=== PATIENT | female | born 1980 | race Caucasian/White ===

== ENCOUNTER 2016-06-04 15:58 | Emergency (ER) | payer OTHER ==
[2016-06-04 16:31] LABS: BASOPHIL 0.2 % (0-2); EOSINOPHIL 2.3 % (0-5); HGB 15.6 g/dl (12.5-16.0); LYMPHOCYTE 13.9 % (15-48); MCH 28.9 pg (25.0-31.0); MCHC 33.9 g/dL (32.0-36.0); MCV 85.2 fL (78.0-100.0); MONOCYTE 6.9 % (0-12); MPV 11.5 fL (6.0-9.5); NEUTROPHIL 76.7 % (41-80); PLT 110 K/uL (150-400); RDW 14.6 % (11.5-14.0); WBC 8.2 K/uL (4.0-10.5)
[2016-06-04 16:46] LABS: ALBUMIN 3.6 g/dL (3.5-5.0); BILIRUBIN - TOTAL 0.4 mg/dL (0.1-1.0); CREATININE 0.6 mg/dL (0.5-1.0); GLOBULIN (CALCULATION) 3.7 g/dL (2.2-4.2); POTASSIUM 4.2 mmol/L (3.5-5.1); TOTAL PROTEIN 7.3 g/dL (6.4-8.3)
== END 2016-06-04 19:25 | disposition home or self-care (01) ==
LOC: FER 15:58
PROVIDERS: Internal Medicine
DX: R07.89 Other chest pain (principal); Z88.0 Allergy status to penicillin
CPT/HCPCS: 36415; 71020; 71275; 80053; 84484; 85025; 85379; 93005; J1170; J1885; J2405; Q9967

== ENCOUNTER 2016-08-18 20:33 | Emergency (ER) | payer OTHER ==
[2016-08-18 23:38] LABS: CREATININE 0.6 mg/dL (0.5-1.0); POTASSIUM 3.9 mmol/L (3.5-5.1)
[2016-08-19 01:59] LABS: CPK 18 U/L (26-140); LIPASE 55 U/L (13-60)
[2016-08-19 02:04] LABS: TROPONIN T < 0.010 ng/mL
== END 2016-08-19 03:31 | disposition home or self-care (01) ==
LOC: FER 20:33
PROVIDERS: Emergency Medicine Emergency Medical Services
DX: R07.81 Pleurodynia (principal); R06.02 Shortness of breath; I10 Essential (primary) hypertension; F17.210 Nicotine dependence, cigarettes, uncomplicated; Z79.899 Other long term (current) drug therapy
CPT/HCPCS: 36415; 71020; 71275; 80048; 82550; 82553; 83690; 84484; 85379; 93005; J1170; J1885; J2405; Q9967

== ENCOUNTER 2020-04-27 12:06 | Emergency (ER) | payer OTHER ==
[~2020-04-27 12:06] MED LIST: AUGMENTIN 875-1 EACH PO; ELIQUIS5 MG PO; LIPITOR40 MG PO; LOPRESSOR50 MG PO; NAPROXEN500 MG PO; NORCO 5-325 TA1 EACH PO; NORVASC5 MG PO; ZESTRIL5 MG PO
[2020-04-27 13:09] LABS: BASOPHIL 0.2 % (0-2); EOSINOPHIL 0.1 % (0-5); HCT 42.9 % (37.0-47.0); HGB 14.2 g/dl (12.5-16.0); LYMPHOCYTE 6.3 % (15-48); MCH 29.2 pg (25.0-31.0); MCHC 33.1 g/dL (32.0-36.0); MCV 88.1 fL (78.0-100.0); MONOCYTE 6.1 % (0-12); MPV 11.8 fL (6.0-9.5); NRBC 0; PLT 133 K/uL (150-400); RBC 4.87 M/uL (4.20-5.40); RDW 14.6 % (11.5-14.0); WBC 9.2 K/uL (4.0-10.5)
[2020-04-27 13:12] LABS: INR 1.39 (0.9-1.2); PROTHROMBIN TIME 16.2 SECONDS (11.4-13.6); PTT 33.2 SECONDS (22.2-34.7)
[2020-04-27 13:44] LABS: ALBUMIN 1.9 g/dL (3.4-5.0); BILIRUBIN - TOTAL 0.7 mg/dL (0.2-1.0); BUN/CREAT RATIO (CALC) 16.9 RATIO; CREATININE 0.65 mg/dL (0.51-0.95); GLOBULIN (CALCULATION) 4.5 g/dL; TOTAL PROTEIN 6.4 g/dL (6.4-8.2)
[2020-04-27 13:56] LABS: D-DIMER > 20.00 ug/mLFEU (0.00-0.41)
[2020-04-27 15:11] LABS: BILIRUBIN NEGATIVE (NEGATIVE); BLOOD NEGATIVE Ery/uL (NEGATIVE); CLARITY CLEAR (CLEAR); COLOR YELLOW (YELLOW); GLUCOSE (U) NORMAL (NORMAL); LEUKOCYTES TRACE Leu/uL (NEGATIVE); NITRITE NEGATIVE (NEGATIVE); PROTEIN NEGATIVE (NEGATIVE); SPECIFIC GRAVITY <=1.005 (1.001-1.030); UROBILINOGEN 0.2 mg/dL (0.2-1.0)
[2020-04-27 15:22] LABS: BACTERIA TRACE
[2020-04-27] MEDS ORDERED: KEFLEX750 MG PO (16:12)
[2020-04-27] MEDS ORDERED: PERCOCET 5-3251 EACH PO (16:12)
== END 2020-04-27 16:58 | disposition home or self-care (01) ==
LOC: FER 12:06
PROVIDERS: Emergency Medicine
DX: M62.272 Nontraumatic ischemic infarction of muscle, left ankle and foot (principal); R06.02 Shortness of breath; E78.5 Hyperlipidemia, unspecified; F17.210 Nicotine dependence, cigarettes, uncomplicated; Z79.899 Other long term (current) drug therapy
CPT/HCPCS: 36415; 36600; 80053; 81001; 82803; 83605; 84145; 84484; 85025; 85379; 85610; 85730; 93005; 93971